=== PATIENT | male | born 1955 | race Caucasian/White ===

== ENCOUNTER 2019-12-12 10:53 | Outpatient (CLI) | payer OTHER, SELFPAY ==
[2019-12-12 11:02] VITALS: BMI 26.9
--- NOTE | 2019-12-12 11:03 | ECG_ITS ---
NAME OF STUDY: TREADMILL STRESS TEST INDICATION: Shortness of Breath EXERCISE DATA: The patient was exercised by Myke protocol. Baseline heart rate was 73 beats per minute. Baseline blood pressure was 114/90 millimeters of mercury. Target heart rate was 158 beats per minute. Maximum heart rate achieved was 140, which was 88 % of the target heart rate. Maximum blood pressure was 177/98 millimeters of mercury. Total exercise time was 11 minutes 44 seconds. Maximum METs achieved was 13.5, maximum VO2 was 47.3. The reason for ending the test was maximum effort achieved. The patient complained of shortness of breath during the stress test, which then resolved at the end of the test. ELECTROCARDIOGRAM: BASELINE: Showed sinus rhythm, normal axis, no significant ST-T changes at the baseline noted. EXERCISE: At the peak exercise level, no significant ST-T changes suggestive of ischemia noted. RECOVERY: During the recovery period, heart rate dropped appropriately. No significant ST-T changes in the recovery suggestive of ischemia noted. CONCLUSION: 1. Exercise capacity good. 2. Heart rate response was appropriate. 3. Blood pressure response was hypertensive. 4. Symptoms not suggestive of ischemia. 5. Electrocardiogram portion of the stress test was not suggestive of ischemia. Electronically Signed On 12-13-2019 18:16:57 CDT by Margarita Evans M.D. [email or web address]
[2019-12-12 11:33] VITALS: BP 133/74; PULSE 76
== END 2019-12-12 10:54 | disposition home or self-care (01) ==
LOC: CDL 11:01
PROVIDERS: PCP Registered Nurse; Visit Provider Registered Nurse
DX: R06.02 Shortness of breath (principal)
CPT/HCPCS: 93017

== ENCOUNTER → 2021-07-06 00:01 | Outpatient (BNVA) | payer OTHER, SELFPAY | PROVIDERS: PCP Registered Nurse; Visit Provider Registered Nurse | DX: R39.15 Urgency of urination (principal) | CPT/HCPCS: 80053; 81000; 84153 ==

== ENCOUNTER → 2021-08-22 12:39 | Outpatient (BNVA) | payer OTHER, SELFPAY | PROVIDERS: PCP Registered Nurse; Visit Provider Urology | DX: R39.15 Urgency of urination (principal); N52.9 Male erectile dysfunction, unspecified | CPT/HCPCS: 81003 ==

== ENCOUNTER → 2022-05-25 10:33 | Outpatient (BNVA) | payer OTHER, SELFPAY | PROVIDERS: PCP Registered Nurse; Visit Provider Nurse Practitioner Family | DX: R68.89 Other general symptoms and signs (principal); J32.9 Chronic sinusitis, unspecified | CPT/HCPCS: 87400 ==

== ENCOUNTER → 2023-04-20 08:27 | Outpatient (BNVA) | payer OTHER, SELFPAY | PROVIDERS: PCP Registered Nurse; Visit Provider Registered Nurse | DX: M25.512 Pain in left shoulder (principal); H16.139 Photokeratitis, unspecified eye | CPT/HCPCS: 80053 ==

== ENCOUNTER → 2024-03-13 14:12 | Outpatient (BNVA) | payer MEDICARE, OTHER, SELFPAY | PROVIDERS: PCP Registered Nurse; Visit Provider Dermatology | DX: R63.4 Abnormal weight loss (principal); R53.83 Other fatigue; L82.1 Other seborrheic keratosis; D22.5 Melanocytic nevi of trunk; L57.8 Other skin changes due to chronic exposure to nonionizing radiation; I83.93 Asymptomatic varicose veins of bilateral lower extremities; Z85.820 Personal history of malignant melanoma of skin; Z85.828 Personal history of other malignant neoplasm of skin | CPT/HCPCS: 99213 ==

== ENCOUNTER 2024-03-14 09:45 | Outpatient (CLI) | payer MEDICARE, OTHER, SELFPAY ==
--- NOTE | 2024-03-14 10:02 | XR_ITS ---
WS: [id number] Examination: XR chest 2V* 66035 Reason for Exam: ABNORMAL WEIGHT LOSS/FATIGUE Date: 03/14/2024 Comparison: None. Findings: The cardiomediastinal silhouette is within normal limits There is no edema or effusion. There is no dense consolidation. XR/XR chest 2V* [id number] Impression: No acute lung process is seen.
[2024-03-14 11:16] LABS: Lactate Dehydrogenase 151 U/L (135-225)
== END 2024-03-14 09:46 | disposition home or self-care (01) ==
LOC: LAB 09:48
PROVIDERS: PCP Registered Nurse; Visit Provider Dermatology
DX: R63.4 Abnormal weight loss (principal)
CPT/HCPCS: 71046; 83615

== ENCOUNTER → 2024-04-22 09:21 | Outpatient (BNVA) | payer MEDICARE, OTHER, SELFPAY | PROVIDERS: PCP Registered Nurse; Visit Provider Registered Nurse | DX: Z13.6 Encounter for screening for cardiovascular disorders (principal); Z12.5 Encounter for screening for malignant neoplasm of prostate | CPT/HCPCS: 80053; 80061; 85025; G0103 ==

== ENCOUNTER → 2024-09-10 08:19 | Outpatient (BNVA) | payer MEDICARE, OTHER, SELFPAY | PROVIDERS: PCP Registered Nurse; Visit Provider Dermatology | DX: L82.1 Other seborrheic keratosis (principal); D22.5 Melanocytic nevi of trunk; D48.5 Neoplasm of uncertain behavior of skin; L57.8 Other skin changes due to chronic exposure to nonionizing radiation; B35.1 Tinea unguium; Z85.820 Personal history of malignant melanoma of skin; Z08 Encounter for follow-up examination after completed treatment for malignant neoplasm; Z85.828 Personal history of other malignant neoplasm of skin | CPT/HCPCS: 99213 ==

== ENCOUNTER → 2025-03-12 13:32 | Outpatient (BNVA) | payer MEDICARE, OTHER, SELFPAY | PROVIDERS: PCP Registered Nurse; Visit Provider Dermatology | DX: L21.8 Other seborrheic dermatitis (principal); L82.1 Other seborrheic keratosis; D22.5 Melanocytic nevi of trunk; L57.8 Other skin changes due to chronic exposure to nonionizing radiation; B35.1 Tinea unguium; Z85.820 Personal history of malignant melanoma of skin; Z08 Encounter for follow-up examination after completed treatment for malignant neoplasm; Z85.828 Personal history of other malignant neoplasm of skin; Z57.0 Occupational exposure to noise | CPT/HCPCS: 17000; 99214 ==

== ENCOUNTER → 2025-05-07 11:17 | Outpatient (BNVA) | payer MEDICARE, OTHER, SELFPAY | PROVIDERS: PCP Registered Nurse; Visit Provider Registered Nurse | DX: Z01.89 Encounter for other specified special examinations (principal); Z79.1 Long term (current) use of non-steroidal anti-inflammatories (NSAID) | CPT/HCPCS: 80053; 80061 ==